=== PATIENT | female | born 1980 | race Caucasian/White ===

== ENCOUNTER 2018-10-05 19:20 | Emergency (ER) | payer SELFPAY ==
[~2018-10-05] VITALS: Ht 149.9 cm; Wt 88.5 kg
--- OUTSIDE RECORDS SUMMARY | 2018-10-05 19:23 | XMS REPORT ---
Author Author [facility] Address Unknown Phone Unavailable Care Team Providers Care Experimental Assembler Name Role Phone Unavailable Unavailable Problems This patient has no known problems. Allergies, Adverse Reactions, Alerts This patient has no known allergies or adverse reactions. Medications This patient has no known medications. Encounters Start Date/Time End Date/Time Encounter Type Admission Type Attending [facility] Care Facility Care Department Encounter ID 2018-08-13 12:38:18 2018-08-13 12:38:18 Emergency [facility] [id number] 2018-08-13 12:10:32 2018-08-13 12:10:32 Emergency [facility] [id number] 2018-08-13 12:03:58 2018-08-13 12:03:58 Emergency [facility] [id number]
--- OUTSIDE RECORDS SUMMARY | 2018-10-05 19:23 | XMS REPORT | Clinical Summary ---
Author Author [facility] Organization [facility] Address Unknown Phone Unavailable Care Team Providers Care Copy And Print Associate Name Role Phone PCP Unavailable Allergies Comments Active Allergy Reactions Severity Noted Date Iodine 12/01/2011 Metformin 12/01/2011 Methocarbamol 12/01/2011 Medications End Date Status Medication Sig Dispensed Refills Start Date Active albuterol 90 Inhale 2 1 Month 0 mcg/actuation Puffs by Supply 9 inhalerIndications: Cough mouth 4 times daily as needed for Wheezing. Active ibuprofen (MOTRIN) 600 mg Take 1 tablet 30 tablet 0 tabletIndications: Left by mouth 9 foot pain every 8 hours as needed for Pain or Fever > 100.5. 08/18/2018 azithromycin (ZITHROMAX) Take 2 6 Each 0 250 mg tabletIndications: tablets by 9 Cough mouth on the first day, then take one tablet every day for the next 4 days. Active Problems Problem Noted Date Cough Left foot pain Encounters Care Team Description Date Type Specialty Vicki Dave MD Cough (Primary Dx); Left foot pain; Acute bronchitis, unspecified organism; Contusion of left foot, initial encounter 08/13/2018 Emergency Emergency Medicine 08/13/2018 Travel after 10/04/2017 Social History Date Tobacco Use Types Packs/Day Years Used Never Smoker Smokeless Tobacco: Never Used Alcohol Use Drinks/Week oz/Week Comments Not Currently Sex Assigned at Date Recorded Not on file Industry Job Start Date Occupation Not on file Not on file Not on file Travel End Travel History Travel Start No recent travel history available. Last Filed Vital Signs Time Taken Vital Sign Reading 08/13/2018 2:25 PM CDT Blood Pressure 133/83 08/13/2018 2:25 PM CDT Pulse 79 08/13/2018 2:25 PM CDT Temperature 36.7 C (98.1 F) 08/13/2018 2:25 PM CDT Respiratory Rate 18 08/13/2018 2:25 PM CDT Oxygen Saturation 100% - Inhaled Oxygen - Concentration - Weight - - Height - - Body Mass Index - Plan of Treatment Health Maintenance Due Date Last Done Comments Cervical Cancer Scrn (3 2001 Yrs) IMM Influenza Seasonal 02/20/2019 Oct to July (>/=19 yrs) Procedures Comments Procedure Name Priority Date/Time Associated Diagnosis XRAY FOOT 2 VIEWS MIN STAT 08/13/2018 Left foot pain 12:48 PM CDT XRAY CHEST 2 VIEWS STAT 08/13/2018 Cough 12:13 PM CDT BMP POC Routine 08/13/2018 12:09 PM CDT CBC/DIFF STAT 08/13/2018 12:00 PM CDT TEST STAT 08/13/2018 11:54 AM CDT after 10/04/2017 Results * XRAY FOOT 2 VIEWS MIN (08/13/2018 12:48 PM CDT) Impressions Performed At IMPRESSION: SMS 1.No acute osseous abnormalities of the left foot. 2.Mild soft tissue swelling about the foot. A "PRELIMINARY" report was made available via Touchbase at the time of dictation by the resident indicated below. If the report is described as "FINALIZED" it indicates the attending/staff radiologist below has reviewed the images and agrees with the resident's interpretation. Dictated By: Reed Mcclain MD, 08/13/2018 12:53 PM I have reviewed the study and agree with the findings in this report. Signed By: Ajay Guerrero MD, 08/13/2018 1:17 PM Narrative Performed At EXAMINATION:XRAY FOOT 2 VIEWS MIN SMS SIDE: Left INDICATION: left foot pain/injury COMPARISON:None FINDINGS: BONES: No acute fracture. Plantar and dorsal calcaneal spurs. JOINTS: No malalignment. SOFT TISSUES: Mild soft tissue swelling about the foot. Scattered vascular calcifications. Procedure Note Interface, Rad/Mammog In - 08/13/2018 1:22 PM CDT EXAMINATION: XRAY FOOT 2 VIEWS MIN SIDE: Left INDICATION: left foot pain/injury COMPARISON: None FINDINGS: BONES: No acute fracture. Plantar and dorsal calcaneal spurs. JOINTS: No malalignment. SOFT TISSUES: Mild soft tissue swelling about the foot. Scattered vascular calcifications. IMPRESSION IMPRESSION: 1. No acute osseous abnormalities of the left foot. 2. Mild soft tissue swelling about the foot. A "PRELIMINARY" report was made available via Touchbase at the time of dictation by the resident indicated below. If the report is described as "FINALIZED" it indicates the attending/staff radiologist below has reviewed the images and agrees with the resident's interpretation. Dictated By: Reed Mcclain MD, 08/13/2018 12:53 PM I have reviewed the study and agree with the findings in this report. Signed By: Ajay Guerrero MD, 08/13/2018 1:17 PM Performing Organization Address City/State/Zipcode Phone Number SMS * XRAY CHEST 2 VIEWS (08/13/2018 12:13 PM CDT) Impressions Performed At IMPRESSION: SMS No acute thoracic abnormality. A "PRELIMINARY" report was made available via Touchbase at the time of dictation by the resident indicated below. If the report is described as "FINALIZED" it indicates the attending/staff radiologist below has reviewed the images and agrees with the resident's interpretation. Dictated By: Reed Mcclain MD, 08/13/2018 12:41 PM I have reviewed the study and agree with the findings in this report. Signed By: Ajay Guerrero MD, 08/13/2018 12:51 PM Narrative Performed At EXAMINATION:XRAY CHEST 2 VIEWS, Frontal and lateral SMS INDICATION: cough x 4 days COMPARISON:None FINDINGS: TUBES/LINES:None LUNGS:No consolidations or edema. PLEURA:No effusions or pneumothorax. HEART/MEDIASTINUM:Normal cardiomediastinal silhouette. MUSCULOSKELETAL:No acute findings. UPPER ABDOMEN: No acute findings. Procedure Note Interface, Rad/Mammog In - 08/13/2018 12:56 PM CDT EXAMINATION: XRAY CHEST 2 VIEWS, Frontal and lateral INDICATION: cough x 4 days COMPARISON: None FINDINGS: TUBES/LINES: None LUNGS: No consolidations or edema. PLEURA: No effusions or pneumothorax. HEART/MEDIASTINUM: Normal cardiomediastinal silhouette. MUSCULOSKELETAL: No acute findings. UPPER ABDOMEN: No acute findings. IMPRESSION IMPRESSION: No acute thoracic abnormality. A "PRELIMINARY" report was made available via Touchbase at the time of dictation by the resident indicated below. If the report is described as "FINALIZED" it indicates the attending/staff radiologist below has reviewed the images and agrees with the resident's interpretation. Dictated By: Reed Mcclain MD, 08/13/2018 12:41 PM I have reviewed the study and agree with the findings in this report. Signed By: Ajay Guerrero MD, 08/13/2018 12:51 PM Performing Organization Address City/[facility] Phone Number SMS * BMP POC (08/13/2018 12:09 PM CDT) CO2 POC 23 21 - 32 mmol/L BT [facility] 1 Chloride POC 107 98 - 107 mmol/L BT [facility] 1 Potassium POC 4.2 3.50 - 5.10 mmol/L BT [facility] 1 Sodium POC 141 136 - 145 mmol/L BT [facility] 1 Glucose POC 92 74 - 106 mg/dL BT [facility] 1 Urea Nitrogen 14 7 - 18 mg/dL [facility] POC 1 Creatinine POC 0.7 0.6 - 1.3 mg/dL BT [facility] 1 Calcium Ionized 1.20 1.15 - 1.29 mmol/L BT [facility] POC 1 Hemoglobin POC 14.6 12.0 - 16.0 g/dL BT [facility] 1 Hematocrit POC 43.0 37.0 - 47.0 % [facility] 1 GFR, Estimated >60 mL/min/1.73 m2 BT [facility] 1 GFR, Estim, >60 mL/min/1.73 m2 [facility] Afr-Am 1 Performing Organization Address [facility] [place] MISYS [facility] 1 * CBC/DIFF (08/13/2018 12:00 PM CDT) WBC 7.4 4.5 - 11.0 K/uL BT [facility] 2 RBC 4.56 4.20 - 5.40 M/uL BT [facility] 2 Hemoglobin 13.4 12.0 - 16.0 g/dL BT [facility] 2 Hematocrit 40.0 37.0 - 47.0 % BT [facility] 2 MCV 88 82 - 92 fL BT [facility] 2 MCH 29.4 27.0 - 32.0 pg BT [facility] 2 MCHC 33.5 32.0 - 36.0 g/dL BT [facility] 2 RDW 40.9 36.4 - 46.3 fL BT [facility] 2 Platelet 289 150 - 400 K/uL BT [facility] 2 Mean Platelet 11.5 9.4 - 12.4 fL BT [facility] Volume 2 Percent NRBC 0.0 BT [facility] 2 Absolute NRBC 0.00 BT [facility]IN[facility] 2 Neutrophil 62.7 34.0 - 70.0 % BT [facility] 2 Lymphocyte 26.9 20.0 - 50.0 % BT [facility] 2 Monocyte 6.7 5.0 - 12.0 % BT [facility]IN[facility] 2 Eosinophil 2.6 0.7 - 5.0 % BT MAIN[facility] 2 Basophil 0.8 0.1 - 1.2 % BT [facility]IN[facility] 2 Pct Immat Gran 0.3 0.0 - 0.5 BT MAIN-ST[facility] 2 Neutrophil, Abs 4.61 1.56 - 6.13 K/uL BT MAIN-[facility]ATION 2 Lymphocyte, Abs 1.98 1.18 - 3.74 K/uL BT MAIN-STATION 2 Monocyte, Abs 0.49 (H) 0.24 - 0.36 K/uL BT MAIN-STATION 2 Eosinophil, Abs 0.19 0.04 - 0.36 K/uL BT MAIN-STATION 2 Basophil, Abs 0.06 0.01 - 0.08 K/uL BT MAIN-STATION 2 Absol Immat 0.02 0.00 - 0.03 K/uL BT [facility]IN[facility] Gran 2 Specimen Blood Performing Organization Address City/[facility] Phone Number MISYS BT [facility] 2 * TEST (08/13/2018 11:54 AM CDT) Negative BT [facility]IN[facility] 3 Specimen Urine Performing Organization Address City/[facility] Phone Number MISYS BT [facility] 3 after 10/04/2017 Insurance Type Payer Benefit Subscriber ID Effective Phone Address Plan / Dates Group [facility] PRESUMED INDIGENT PRESUMED xxxxxxxxx 2018- INDIGENT 2018 [facility] SELF-PAY SELF-PAY xxxxxxxxx 2011- [phone] [id number] [place] [address]
--- OUTSIDE RECORDS SUMMARY | 2018-10-05 19:23 | XMS REPORT ---
Author Author Admin, [place] Organization [facility] Address [address] [place] [address] Phone Allergies, Adverse Reactions, Alerts Allergy Name Reaction Description Start Date Severity Status Provider METHACARBAMOL Critical Active Bernard Schroeder MD Conditions or Problems Problem Name Problem Code Onset Date Status Entry Date Provider Comment Standard Description Annotate DEPRESSIVE DISORDER, MAJOR, RECURRENT EPISODE, SEVERE Active Rebeca Still LCSW Major depressive disorder, recurrent episode, severe degree, without mention of psychotic behavior Cough 786.2 Active John Paul Cardoza MD Cough URI 465.9 Active John Paul Cardoza MD Acute upper respiratory infections of unspecified site Vitamin D deficiency 268.9 Active Isaac Marks MD Unspecified vitamin D deficiency rec daily vit d ca suppliment Abnormal uterine bleeding 626.9 Active Isaac Marks MD Unspecified disorders of menstruation and other abnormal bleeding from female genital tract Obesity Active Isaac Marks MD Obesity, unspecified Screening visit for sexually trans dis V74.5 Active Isaac Marks MD Screening examination for venereal disease Screening, cervical cancer V76.2 Active Isaac Marks MD Screening for malignant neoplasms of the cervix Well woman exam V72.3 Active Isaac Marks MD Special investigations and examinations - Gynecological examination ALCOHOL USE DISORDER, EARLY REMISSION, MODERATE Active Rebeca Still LCSW BINGE-EATING DISORDER, MODERATE Active Rebeca Still LCSW Bulimia nervosa ADHD, COMBINED PRESENTATION, MODERATE Active Rebeca Still LCSW Attention deficit disorder of childhood with hyperactivity GENERALIZED ANXIETY DISORDER Active Rebeca Still LCSW Generalized anxiety disorder PTSD Active Rebeca Still LCSW Posttraumatic stress disorder ABNORMAL VAGINAL BLEEDING 626.9 Active Cristi Lerner MD Unspecified disorders of menstruation and other abnormal bleeding from female genital tract Medication List Medication Instructions Start Date Stop Date Generic Name NDC Status Provider Patient Instruction ZOLOFT 50 MG ORAL TABLET 1 tab By Mouth Every Morning SERTRALINE HCL 19255815944 Active Isaac Marks MD Active BROMFED DM 30-2-10 MG/5ML ORAL SYRUP 10 mL every four hours as needed for cough/congestion [id number] Active John Paul Cardoza MD Active NUVARING 0.12-0.015 MG/24HR VAGINAL RING 1 ring per vagina Every 4 wks for 24-28 days ETONOGESTREL-ETHINYL ESTRADIOL 79748095478 Active Isaac Marks MD Active ESTRACE 1 MG ORAL TABLET 1 pill by mouth daily ESTRACE 1 MG ORAL TABLET 436170 ESTRADIOL Inactive ESTRACE 1 MG ORAL TABLET 1 pill by mouth daily ESTRADIOL 50782513290 No Longer Active Isaac Marks MD Active Vital Signs Date Name Value Unit Range Description blood pressure, diastolic 67 mm[Hg] BP carlson blood pressure, systolic 114 mm[Hg] BP sys height E&M 59 [in_us] Bdy height pulse rate E&M 75 /min Heart rate weight E&M 190.38 [lb_av] Weight Measured blood pressure, diastolic 66 mm[Hg] BP carlson blood pressure, systolic 102 mm[Hg] BP sys height E&M 59 [in_us] Bdy height pulse rate E&M 64 /min Heart rate temperature E&M 98.6 [degF] Body temperature weight E&M 195 [lb_av] Weight Measured blood pressure, diastolic 89 mm[Hg] BP carlson blood pressure, systolic 123 mm[Hg] BP sys height E&M 59 [in_us] Bdy height pulse rate E&M 86 /min Heart rate respiratory rate E&M 18 /min Resp rate temperature E&M 98.7 [degF] Body temperature weight E&M 195 [lb_av] Weight Measured blood pressure, diastolic 83 mm[Hg] BP carlson blood pressure, systolic 129 mm[Hg] BP sys height E&M 59 [in_us] Bdy height pulse rate E&M 71 /min Heart rate respiratory rate E&M 13 /min Resp rate temperature E&M 98.3 [degF] Body temperature weight E&M 193.13 [lb_av] Weight Measured blood pressure, diastolic 83 mm[Hg] BP carlson blood pressure, systolic 135 mm[Hg] BP sys height E&M 59 [in_us] Bdy height pulse rate E&M 74 /min Heart rate temperature E&M 98.5 [degF] Body temperature weight E&M 196.38 [lb_av] Weight Measured Diagnostic Results Date Name Value Unit Range Description Lab Report: CBC With Differential/Platelet, Comp. Metabolic Panel (14), ... - Chemistry thyroid stimulating hormone, serum 1.060 u[iU]/mL 0.450-4.500 follicle stimulating hormone, serum 5.8 m[iU]/mL Office Visit: Annual / Family Planning Female s12 - Chemistry beta HCG, urine, semiquantitative negative Lab Report: CBC With Differential/Platelet, Comp. Metabolic Panel (14), ... - Chemistry testosterone, total 5 ng/dL 8-48 hepatitis B surface antigen Negative Negative chloride, serum 100 mmol/L 96-106 urea nitrogen, blood 11 mg/dL 6-20 Office Visit: Annual / Family Planning Female s12 - Urinalysis leukocyte esterase, urine, by dipstick negative Lab Report: CBC With Differential/Platelet, Comp. Metabolic Panel (14), ... - Hematology mean corpuscular hemoglobin concentration, RBC 33.7 G/DL % 31.5-35.7 erythrocyte (RBC) count 4.59 X10E6/UL 10*6/mm3 3.77-5.28 Office Visit: Annual / Family Planning Female s12 - Urinalysis nitrite, urine, semiquantitative negative Lab Report: CBC With Differential/Platelet, Comp. Metabolic Panel (14), ... - Serology hepatitis C antibody, serum <0.1 0.0-0.9 Office Visit: Annual / Family Planning Female s12 - Urinalysis urine color yellow Lab Report: CBC With Differential/Platelet, Comp. Metabolic Panel (14), ... - Chemistry Absolute Neutrophils 5.2 X10E3/UL 10*3/uL 1.4-7.0 Office Visit: Annual / Family Planning Female s12 - Urinalysis bilirubin, urine negative Lab Report: CBC With Differential/Platelet, Comp. Metabolic Panel (14), ... - Chemistry urea nitrogen/creatinine ratio, serum 17 9-23 Lab Report: CBC With Differential/Platelet, Comp. Metabolic Panel (14), ... - Hematology mean corpuscular volume, RBC 90 fL 79-97 monocytes as percent of blood leukocytes 5 % Not Estab. Lab Report: CBC With Differential/Platelet, Comp. Metabolic Panel (14), ... - Chemistry albumin/globulin ratio, serum 1.8 1.2-2.2 creatinine, serum 0.65 mg/dL 0.57-1.00 bilirubin, serum, total <0.2 mg/dL mg/dL 0.0-1.2 Lab Report: CBC With Differential/Platelet, Comp. Metabolic Panel (14), ... - Hematology Eosinophil Absolute Count 0.3 X10E3/UL 10*3/uL 0.0-0.4 Lab Report: Ct, Ng, Trich vag by GRACIELA - Lab chlamydia DNA probe Negative Negative Office Visit: Annual / Family Planning Female s12 - Urinalysis appearance, urine clear blood in urine (hemoglobin) by dipstick negative Lab Report: CBC With Differential/Platelet, Comp. Metabolic Panel (14), ... - Chemistry aspartate aminotransferase (SGOT), serum 20 U/L 0-40 B-12, serum 567 pg/mL 232-1245 Lab Report: CBC With Differential/Platelet, Comp. Metabolic Panel (14), ... - Hematology red blood cell distribution width 13.5 % 12.3-15.4 leukocyte count, blood 8.3 X10E3/UL 10*3/mm3 3.4-10.8 Office Visit: Annual / Family Planning Female s12 - Urinalysis pH, urine, semiquantitative 6.0 Lab Report: CBC With Differential/Platelet, Comp. Metabolic Panel (14), ... - Chemistry potassium, serum 4.0 mmol/L 3.5-5.2 albumin, serum 5.0 g/dL 3.5-5.5 immature granulocytes, percentage of total cells, blood 1 % Not Estab. Lab Report: CBC With Differential/Platelet, Comp. Metabolic Panel (14), ... - Hematology lymphocyte count, blood, automated 2.3 X10E3/UL 10*3/mm3 0.7-3.1 hematocrit, blood 41.5 % 34.0-46.6 Lab Report: Ct, Ng, Trich vag by GRACIELA - Microbiology Neisseria gonorrhoeae DNA probe Negative Negative Lab Report: CBC With Differential/Platelet, Comp. Metabolic Panel (14), ... - Chemistry sodium, serum 143 mmol/L 134-144 Lab Report: CBC With Differential/Platelet, Comp. Metabolic Panel (14), ... - Hematology neutrophils as percent of blood leukocytes 62 % Not Estab. basophils as percent of blood leukocytes 1 % Not Estab. Lab Report: CBC With Differential/Platelet, Comp. Metabolic Panel (14), ... - Chemistry folate, serum 7.0 ng/mL >3.0 Office Visit: Annual / Family Planning Female s12 - Urinalysis protein, urine, semiquantitative (dipstick) negative Lab Report: CBC With Differential/Platelet, Comp. Metabolic Panel (14), ... - Serology rapid plasma reagin antibody, serum Non Reactive Non Reactive Lab Report: CBC With Differential/Platelet, Comp. Metabolic Panel (14), ... - Chemistry carbon dioxide, venous blood 23 mmol/L 20-29 calcium, serum 9.8 mg/dL 8.7-10.2 alanine aminotransferase (SGPT), serum 15 U/L 0-32 Lab Report: CBC With Differential/Platelet, Comp. Metabolic Panel (14), ... - Hematology mean corpuscular hemoglobin, RBC 30.5 pg 26.6-33.0 Office Visit: Annual / Family Planning Female s12 - Urinalysis specific gravity, urine 1.005 Lab Report: CBC With Differential/Platelet, Comp. Metabolic Panel (14), ... - Chemistry protein, total, serum 7.8 g/dL 6.0-8.5 dehydroepiandrosterone sulfate, serum 106.8 ug/dL 57.3-279.2 alkaline phosphatase, serum 54 U/L 39-117 Lab Report: CBC With Differential/Platelet, Comp. Metabolic Panel (14), ... - Hematology hemoglobin, blood 14.0 g/dL 11.1-15.9 Lab Report: CBC With Differential/Platelet, Comp. Metabolic Panel (14), ... - Chemistry 17-hydroxyprogesterone, serum or plasma 27 ng/dL Lab Report: CBC With Differential/Platelet, Comp. Metabolic Panel (14), ... - Hematology lymphocytes as percent of blood leukocytes 27 % Not Estab. Lab Report: CBC With Differential/Platelet, Comp. Metabolic Panel (14), ... - Chemistry hemoglobin A1C, blood, as % of total hemoglobin 5.1 % 4.8-5.6 Office Visit: Annual / Family Planning Female s12 - Urinalysis glucose, urine, semiquantitative negative Lab Report: CBC With Differential/Platelet, Comp. Metabolic Panel (14), ... - Genetics/fertility eGFR if 131 mL/min/1.73m2 >59 Lab Report: CBC With Differential/Platelet, Comp. Metabolic Panel (14), ... - Hematology basophil count, absolute 0.1 x10E3/uL 0.0-0.2 Lab Report: CBC With Differential/Platelet, Comp. Metabolic Panel (14), ... - Chemistry globulin, serum 2.8 1.5-4.5 Estimated Glomerular Filtration Rate (calc) 114 mL/min/1.73m2 >59 vitamin D 25-hydroxy, serum 13.9 ng/mL 30.0-100.0 luteinizing hormone, serum 9.2 m[iU]/mL Lab Report: CBC With Differential/Platelet, Comp. Metabolic Panel (14), ... - Hematology eosinophils as percent of blood leukocytes 4 % Not Estab. Lab Report: CBC With Differential/Platelet, Comp. Metabolic Panel (14), ... - Chemistry blood glucose, random 90 mg/dL 65-99 Office Visit: Annual / Family Planning Female s12 - Urinalysis urobilinogen, urine, semiquantitative (dipstick) negative Lab Report: CBC With Differential/Platelet, Comp. Metabolic Panel (14), ... - Hematology monocyte count, blood, automated 0.4 X10E3/UL 10*3/uL 0.1-0.9 platelet count 297 X10E3/UL 10*3/mm3 150-379 Office Visit: Annual / Family Planning Female s12 - Urinalysis ketones, urine, by test strip negative Encounters Date Encounter Provider Code Facility 14:46:53 RUBBER MOLD MAKER Est Patient Exp Problem - 70631 Isaac Marks MD CPT-62750 [facility] [employer] 15:18:05 RUBBER MOLD MAKER Est Patient Exp Problem - 63399 John Paul Cardoza MD CPT-23113 [facility] 15:51:42 RUBBER MOLD MAKER Est Patient Exp Problem - 39673 Isaac Marks MD CPT-11789 [facility] [employer] 13:14:01 CDT Est Patient Exp Problem - 05238 Cristi Lerner MD CPT-83750 [facility] Procedures Code Procedure Name Date Entry Date Standard Description CPT-58267 Psychotherapy 45 (38-52*) min - 06001 (with patient and/or family member) 14:04:58 CDT CPT-88753 Psychotherapy 45 (38-52*) min - 42944 (with patient and/or family member) 14:29:49 CDT CPT-12385 Diagnostic evaluation with medical - 08095 12:22:24 CDT CPT-26882 Psychotherapy 45 (38-52*) min - 52055 (with patient and/or family member) 13:19:27 RU[employer]ER [employer] MAKER CPT-93212 Psychotherapy 45 (38-52*) min - 16721 (with patient and/or family member) 09:15:00 RUBBER [employer]OLD MAKER CPT-22284 Psychotherapy 45 (38-52*) min - 87123 (with patient and/or family member) 14:40:46 RUBBER MOLD MAKER CPT-HE001 Health Education/Supportive Counseling 14:24:47 RUBBER MOLD MAKER CPT-56620 Ultrasound of Uterus- 1st trimester 15:51:42 RUBBER MOLD MAKER CPT-29623 Psychotherapy 45 (38-52*) min - 35228 (with patient and/or family member) 12:45:44 RUBBER MOLD MAKER CPT-64777 Est Patient Well Exam (18 - 39 Yrs) - 01457 15:17:36 RUBBER MOLD MAKER CPT-58546 Psychotherapy 45 (38-52*) min - 23909 (with patient and/or family member) 09:29:40 RUBBER MOLD MAKER CPT-43592 Diagnostic evaluation (no medical) - 30706 11:36:14 CDT
--- NOTE | 2018-10-05 20:13 | NUR ---
MECHANICAL SERVICE REPRESENTATIVE IN TRIAGE TO SEE PT
[2018-10-05] MEDS ORDERED: IBUPROFEN 600 MG TAB PO ONE (20:20)
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
[2018-10-05] MEDS ORDERED: CYCLOBENZAPRINE5 MG PO (22:12)
[2018-10-05] MEDS ORDERED: TYLENOL WITH C1 EACH PO (22:12)
[2018-10-05 22:57] VITALS: BP 143/74
== END 2018-10-05 22:30 | disposition home or self-care (01) ==
LOC: ER 19:20
DX: S20.219A Contusion of unspecified front wall of thorax, initial encounter (principal); M54.2 Cervicalgia; S16.1XXA Strain of muscle, fascia and tendon at neck level, initial encounter; V43.52XA Car driver injured in collision with other type car in traffic accident, initial encounter; Y92.488 Other paved roadways as the place of occurrence of the external cause; F41.9 Anxiety disorder, unspecified
CPT/HCPCS: 71046; 72050; 99283

== ENCOUNTER 2020-12-29 13:16 | Emergency (ER) | payer BC ==
[~2020-12-29] VITALS: Ht 149.9 cm; Wt 113.4 kg
[~2020-12-29 13:16] MED LIST: CYCLOBENZAPRINE5 MG PO; TYLENOL WITH C1 EACH PO
== END 2020-12-29 14:00 | disposition home or self-care (01) ==
LOC: ER 13:47
DX: Z76.5 Malingerer [conscious simulation] (principal); F90.9 Attention-deficit hyperactivity disorder, unspecified type; F41.9 Anxiety disorder, unspecified; F50.81 Binge eating disorder; Z68.43 Body mass index [BMI] 50.0-59.9, adult
CPT/HCPCS: 99284